=== PATIENT | male | born 1945 | race Caucasian/White ===

== ENCOUNTER 2019-05-27 14:20 | Outpatient (CLI) | payer MEDICARE, OTHER ==
--- NOTE | 2019-05-27 14:37 | RAD ---
XR Chest Pa Lat @ [facility] HISTORY: Dyspnea COMPARISON: 04/12/2016 FINDINGS: The heart size is enlarged. The lungs are well expanded without focal areas of consolidatio n, gloria pulmonary edema, pneumothorax or pleural effusions. Chronic changes again seen.. There are degenerative changes in the spine. IMPRESSION: Cardiomegaly
== END 2019-05-27 14:21 | disposition home or self-care (01) ==
LOC: RAD 14:20
PROVIDERS: ATTEND Internal Medicine
DX: R06.00 Dyspnea, unspecified (principal); I51.7 Cardiomegaly
CPT/HCPCS: 71046